=== PATIENT | male | born 1975 | race African-American/Black ===

== ENCOUNTER 2017-05-25 11:03 | Emergency (ER) | payer MEDICAID ==
[~2017-05-25] VITALS: Ht 172.7 cm; Wt 100.0 kg
[2017-05-25 11:08] VITALS: BP 154/91
== END 2017-05-25 14:56 | disposition home or self-care (01) ==
LOC: ER 14:52
DX: K04.7 Periapical abscess without sinus (principal); I10 Essential (primary) hypertension; J45.909 Unspecified asthma, uncomplicated; F17.210 Nicotine dependence, cigarettes, uncomplicated; Z88.6 Allergy status to analgesic agent
CPT/HCPCS: 99283